=== PATIENT | male | born 1965 | race Caucasian/White ===

== ENCOUNTER 2017-03-04 10:17 | Observation (INO) | payer OTHER ==
[2017-03-04] MEDS ORDERED: NS 500 ML IV ONE (10:22)
--- NOTE | 2017-03-04 10:24 | EDPHY ---
H & P Stated Complaint: chest pain - Personal History Current Tetanus/Diphtheria Vaccine: Yes Current Tetanus Diphtheria and Acellular Pertussis (TDAP): Yes - Medical/Surgical History Hx Asthma: No Hx Chronic Respiratory Disease: No Hx Diabetes: No Hx Cardiac Disease: Yes Hx Renal Disease: No Hx Cirrhosis: No Hx Alcoholism: No Hx HIV/AIDS: No Hx Splenectomy or Spleen Trauma: No Other PMH: medical hyperlipidemia, migraines, GERD. 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 EMS was summoned. Symptoms continue although they are less severe now without intervention beyond aspirin. EMS unable to establish IV access and was therefore not given nitroglycerin en route. REVIEW OF SYSTEMS: A ten point review of systems was performed and is negative with the exception of the items mentioned in the HPI PAST MEDICAL & SURGICAL HISTORY: No history of coronary artery disease SOCIAL HISTORY:Nonsmoker. No listed drug use. No cocaine use. Works as a [employer]. FAMILY HISTORY: Positive family history, notably mother and father with history of AL, 1st AL in their late 40s PHYSICAL EXAM (Prior to examination, patient consented to physical exam, hands were washed and my usual and customary physical exam procedures followed) 1) GENERAL: Well-developed, well-nourished, alert and oriented. Appears to be in no acute distress. 2) HEAD: Normocephalic, atraumatic 3) HEENT: Pupils equal, round, reactive to light bilaterally. Sclera anicteric. 4) NECK: Full range of motion, no meningeal signs. No carotid bruit 5) LUNGS: Clear auscultation bilaterally, no wheezes, no rhonchi, no retractions. 6) HEART: Regular rate and rhythm, no murmur, no heave, no gallop. 7) ABDOMEN: No guarding, no rebound, no focal tenderness, negative McBurney's, negative Leonadro's, negative Rovsing's, negative peritoneal sign, negative Homans no palpable cord 8) MUSCULOSKELETAL: Moving all extremities, no focal areas of tenderness, no obvious trauma. No peripheral edema or discoloration. 9) BACK: , no visual or palpable abnormality. 10) SKIN: No rash, no petechiae. 11) Psychiatric: Patient is oriented X 3, there is no agitation. DIFFERENTIAL DIAGNOSIS: In no particular order, including but not limited to myocardial ischemia, pulmonary embolus, chest wall pain, pleural inflammation and pulmonary infectious causes. (Marley Joseph) Constitutional: Initial Vital Signs Temperature (C) 36.7 C 03/04/17 10:22 Heart Rate 60 03/04/17 10:22 Respiratory Rate 18 03/04/17 10:22 Blood Pressure 137/78 H 03/04/17 10:22 O2 Sat (%) 96 03/04/17 10:22 O2 Delivery Mode Room Air O2 (L/minute) 2 Allergies/Adverse Reactions: ketorolac tromethamine [From Toradol] Allergy (Verified 02/14/14 16:08) Home Medications: Medication Instructions Recorded Rosuvastatin Calcium [Crestor 20mg 20 mg PO HS 02/14/14 (RX)] Atenolol [Tenormin 50 mg (*)] 50 mg PO HS 03/04/17 Omeprazole 40 mg PO HS 03/04/17 Medical Decision Making <Marley Joseph - Last Filed: 03/04/17 11:30> Consult/Admit Bed Type: [place] [id number] <Antony Khan - Last Filed: 03/04/17 11:51> - Diagnostics Imaging Results: Imaging Impressions Chest X-Ray 03/04/17 10:23 Impression: Stable and normal. Imaging Impressions Chest X-Ray 03/04/17 10:23 Impression: Stable and normal. Images reviewed by myself (Marley Joseph) Other Provider: PHYSICIAN DOCUMENTATION: The patient was evaluated and managed by the Physician Metalsmith Helper and myself. I have reviewed the chart and agree with the findings and plan of care as documented. In addition, I examined the patient myself at 1033. History confirmed as left-sided chest pain while driving. Physical findings as follows: Regular rate and rhythm without murmur, no diaphoresis. 12-lead EKG interpreted by me; official reading is in trace master. My interpretation is sinus rhythm, no acute ischemic changes. Significant family history for coronary disease, received aspirin by EMS, plan for troponin and nitroglycerin and chest x-ray, likely admission for further evaluation. I am the secondary supervising physician. (Antony Khan) - Data Points Laboratory Results: Laboratory Results 03/04/17 10:35 03/04/17 10:35 03/04/17 03/04/17 03/04/17 11:07 10:35 10:35 WBC 8.23 10^3/uL 10^3/uL (3.80-9.50) RBC 5.50 10^6/uL 10^6/uL (4.40-6.38) Hgb 17.4 g/dL g/dL (13.7-17.5) Hct 47.2 % % (40.0-51.0) MCV 85.8 fL fL (81.5-99.8) MCH 31.6 pg pg (27.9-34.1) MCHC 36.9 g/dL H g/dL (32.4-36.7) RDW 12.0 % % (11.5-15.2) Plt Count 247 10^3/uL 10^3/uL (150-400) MPV 10.5 fL fL (8.7-11.7) Neut % (Auto) 66.5 % % (39.3-74.2) Lymph % (Auto) 18.5 % % (15.0-45.0) [place] % (Auto) 13.2 % H % (4.5-13.0) Eos % (Auto) 0.9 % % (0.6-7.6) Baso % (Auto) 0.4 % % (0.3-1.7) Nucleat RBC Rel Count 0.0 % % (0.0-0.2) Absolute Neuts (auto) 5.48 10^3/uL 10^3/uL (1.70-6.50) Absolute Lymphs (auto) 1.52 10^3/uL 10^3/uL (1.00-3.00) Absolute Monos (auto) 1.09 10^3/uL H 10^3/uL (0.30-0.80) Absolute Eos (auto) 0.07 10^3/uL 10^3/uL (0.03-0.40) Absolute Basos (auto) 0.03 10^3/uL 10^3/uL (0.02-0.10) Absolute Nucleated RBC 0.00 10^3/uL 10^3/uL (0-0.01) Immature Gran % 0.5 % % (0.0-1.1) Immature Gran # 0.04 10^3/uL 10^3/uL (0.00-0.10) D-Dimer Pending Sodium 143 mEq/L mEq/L (134-144) Potassium 4.9 mEq/L mEq/L (3.5-5.2) Chloride 107 mEq/L mEq/L (97-110) Carbon Dioxide 22 mEq/l mEq/l (22-31) Anion Gap 14 mEq/L mEq/L (8-16) BUN 15 mg/dL mg/dL (7-23) Creatinine 1.2 mg/dL mg/dL (0.7-1.3) Estimated GFR > 60 Glucose 88 mg/dL mg/dL (70-100) Calcium 9.5 mg/dL mg/dL (8.5-10.4) Total Bilirubin 0.8 mg/dL mg/dL (0.1-1.4) Conjugated Bilirubin 0.5 mg/dL mg/dL (0.0-0.5) Unconjugated Bilirubin 0.3 mg/dL mg/dL (0.0-1.1) AST 56 IU/L IU/L (17-59) ALT 44 IU/L IU/L (21-72) Alkaline Phosphatase 81 IU/L IU/L (38-126) Troponin I < 0.012 ng/mL ng/mL (0.000-0.034) Total Protein 7.2 g/dL g/dL (6.3-8.2) Albumin 4.1 g/dL g/dL (3.5-5.0) Lipase 123 IU/L IU/L (23-300) Specimen Hemolysis 143 Medications Given: Nitroglycerin (Nitrostat) 0.4 mg SL Q5M PRN PRN Reason: Chest Pain Last Admin: 03/04/17 11:39 Dose: 0.4 mg Discontinued Medications Sodium Chloride (Ns) 500 mls @ 1,000 mls/hr IV EDNOW ONE PRN Reason: Protocol Stop: 03/04/17 10:51 Last Admin: 03/04/17 11:39 Dose: 500 mls Departure <Marley Joseph - Last Filed: 03/04/17 11:30> <Antony Khan - Last Filed: 03/04/17 11:51> - Departure Disposition: [facility] Inpatient Acute Clinical Impression: Chest pain Qualifiers: Chest pain type: other chest pain Qualified Code(s): R07.89 - Other chest pain Condition: Fair Referrals: Patient,NotPresent [Unknown] - As per Instructions
--- NOTE | 2017-03-04 10:28 | CPEKG ---
Heart Rate: 64 RR Interval: 938 P-R Interval: 148 QRSD Interval: 94 QT Interval: 404 QTC Interval: 417 P [place]: 0 QRS [place]: 11 T Wave [place]: 23 EKG Severity - NORMAL ECG - EKG Impression: SINUS RHYTHM Electronically Signed By: Antony Khan 04-Mar-2017 10:33:25
[2017-03-04] MEDS ORDERED: NITROGLYCERIN 0.4 MG BTL SL PRN (10:37)
[2017-03-04 10:48] LABS: PLATELET COUNT 247 10^3/uL (150-400)
[2017-03-04] MEDS ORDERED: ONDANSETRON 4 MG/2 ML VIAL IVP PRN (12:27)
[2017-03-04] MEDS ORDERED: ACETAMINOPHEN 325 MG TAB PO PRN (12:27)
[2017-03-04] MEDS: ASPIRIN 325 MG TAB PO SCH (12:55)
--- NOTE | 2017-03-04 13:23 | GHP ---
[f rep st] HISTORY AND PHYSICAL DATE OF ADMISSION: 03/04/2017 This patient is a pleasant 52-year-old gentle with a strong family history of coronary disease as wel l as hyperlipidemia, who presents with chest pain. 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 He developed some substernal chest pain that radiated to his left arm. It was nonexertional. It was not associated with diaphoresis or shortness of breath. He has no exertional symptoms, although he has not exercised in a couple of weeks. Regarding risk factors, he has hyperlipidemia and a strong family history with the father, who of cardiovascular complic ations in his 60s, and had his 1st myocardial event and in his 40s. The patient does not have diabet es, does not smoke, he does not use cocaine. He does not have high blood pressure, although he takes atenolol for migraine prophylaxis. He has no heart failure symptoms, such as PND, orthopnea, or low er extremity edema. No fever, chills, cough, sputum. REVIEW OF SYSTEMS: Complete 10-point review of systems conducted; negative, except as noted in the H PI. PAST MEDICAL HISTORY: Hyperlipidemia, migraine, reflux. ALLERGIES: Toradol. MEDICATIONS: Omeprazole, atenolol, and Crestor. SOCIAL HISTORY: He lives in [place]. 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 Nonsmoker. Rare alcohol. FAMILY HISTORY: As in the HPI. PHYSICAL EXAMINATION: VITAL SIGNS: Temp 36.7, blood pressure 137/78, pulse 60, breathing 18 times a minute, 96% on room air. GENERAL: No acute distress. HEENT: Sclerae anicteric. Oropharynx clear . Mucous membranes are moist. NECK: Supple without lymphadenopathy or JVD. LUNGS: Clear to auscu ltation bilaterally. HEART: S1, S2. ABDOMEN: Soft, nontender, nondistended. LOWER EXTREMITIES: Without edema. Calves are nontender. SKIN: Without rash. NEUROLOGIC: Exam is grossly nonfocal. LABS: Chem stat: CBC is normal. D-dimer is less than 0.27. Sodium 143, potassium 4.9, chloride 10 7. Bicarb 22, BUN 15, creatinine 1.2, glucose 895. LFTs normal. Troponin less than 0.012. Lipase normal. TESTS AND IMAGING: EKG, interpreted by dc, shows sinus with normal axis and intervals, and no ST or T-wave changes. Essentially, a normal EKG. Chest x-ray, interpreted by me, shows no acute cardiopulmonary disease. I discussed the case with NAVA Bledsoe of the emergency department. ASSESSMENT/PLAN: 52-year-old gentleman with chest pain. 1. Chest pain. His scenario is somewhat high risk, and he has typical chest pain. He has a nonisch emic EKG. He is currently pain free. Heparin is not indicated. I will write him for an aspirin, cy ovi enzymes, and perform troponin and perform a treadmill stress test in the morning, with nuclear im aging. 2. Elevated creatinine. His creatinine is in the upper limit of normal. I suspect this is his base line. We will follow. 3. Hyperlipidemia. We will check a lipid panel in the morning. 4. Prophylaxis. Pharmacologic prophylaxis indicated if in the hospital longer than 24 hours, which I do not anticipate. DISPOSITION: Observation status. /[id number]/MODL
--- NOTE | 2017-03-04 15:44 | ASMTCMCOM ---
CM Note CM Note Notes: 03/04/2017 Case Management Note Reviewed chart, spoke w/RN. There are no case management d/c needs identified at this time d/t pt age, marital status, activity levels and employment status prior to admission. There are no PT or OT evals ordered at this time. Case Management d/c poc: home independent with follow up as directed. Case Management available if needs change. Date Signed: 03/04/2017 03:44 PM Electronically Signed By:Leilani Aviles RN
[2017-03-04 19:35] VITALS: TEMP 97.4
[2017-03-04] MEDS ORDERED: PANTOPRAZOLE SODIUM 40 MG TAB PO SCH (21:00)
[2017-03-04] MEDS ORDERED: ROSUVASTATIN CALCIUM 20 MG TAB PO SCH (21:00)
[2017-03-04] MEDS ORDERED: NON-FORMULARY NEW DRUG (Omeprazole [Omeprazole] 40 MG) PO SCH (21:00)
[2017-03-04] MEDS ORDERED: HYDROmorphONE/DILAUDID 4 MG TAB PO ONE (22:42)
[2017-03-05 07:36] VITALS: BP 132/88; PULSE 61; RESP 14; O2SAT 95
[2017-03-05] MEDS: ASPIRIN 325 MG TAB PO SCH (07:42)
[2017-03-05] MEDS: ONDANSETRON DISINTEGRATING 4 MG TAB PO PRN ×2 (07:43→12:37)
[2017-03-05] MEDS: HYDROmorphONE/DILAUDID 1 MG/ML INJ IVP PRN ×3 (08:20→12:53)
--- NOTE | 2017-03-05 08:46 | CPEKG ---
Heart Rate: 55 RR Interval: 1091 P-R Interval: 148 QRSD Interval: 96 QT Interval: 428 QTC Interval: 410 P [place]: 6 QRS [place]: 4 T Wave [place]: 25 EKG Severity - NORMAL ECG - EKG Impression: SINUS RHYTHM Electronically Signed By: Nick Javed 05-Mar-2017 14:42:44
[2017-03-05] MEDS ORDERED: PROMETHAZINE HCL 25 MG/ML INJ IVP PRN (09:03)
--- NOTE | 2017-03-05 12:32 | CPR ---
[f rep st] NONINVASIVE CARDIAC PROCEDURE REPORT DATE OF PROCEDURE: 03/05/2017 PROCEDURE: Exercise nuclear stress test. INDICATION: The patient is a 52-year-old male who presented to the hospital with chest pressure, whi ch radiated into his left arm while driving. He was given nitroglycerin, which improved the discomfo rt, but did not completely eliminate it. His chest pain persisted for hours post nitroglycerin. RISK FACTORS FOR CORONARY ARTERY DISEASE: Include hyperlipidemia. Also, his father had a fatal [place] a t the age of 65. DESCRIPTION OF THE PROCEDURE: Consent was obtained, and the patient was placed on continuous telemet ry. His resting EKG revealed normal sinus rhythm with heart rate of 68. He has diffuse T-wave shannan ening without diagnostic changes for ischemia. The patient walked on the treadmill for 9 minutes wit hout any associated symptoms. He remained in normal sinus rhythm with minimal upsloping, ST depressi on diffusely. His heart rate peaked at 152 beats per minute. His blood pressure at rest was 118/88, and peaked at 178/88. It returned to baseline 5 minutes into recovery. His heart rate returned to baseline 5 minutes into recovery as well. PLAN: Normal exercise treadmill test. Await nuclear images. /[id number]/MODL
[2017-03-05] MEDS ORDERED: ACETAMINOPHEN/ASA/CAFFEINE 1 EACH TAB PO PRN (13:50)
--- NOTE | 2017-03-05 16:09 | ASDISCHSUM ---
Discharge Information Plan Status:Home with No Needs Medically Cleared to Leave:03/04/2017 Discharge Date:03/05/2017 03:59 PM CM D/C Disposition:Home, Routine, Self-Care ADT D/C Disposition:Home, Routine, Self-Care Projected Discharge Date:03/05/2017 03:59 PM Transportation at D/C:Family Discharge Delay Reason: Follow-Up Date:03/05/2017 03:59 PM Discharge Slot: Final Diagnosis: Placement Information Patient Contact Information Contact Name:CLARA Relationship: Address:[address] [place] Phone: State/Zip Code:[place] [address] Email: Financial Information Financial Class:[facility] Primary Plan Desc:[facility] [place] [facility] Primary Plan Number:[id number] Secondary Plan Desc: Secondary Plan Number: Assessment Information [facility] CM Progress Note CM Note CM Note Notes: 03/04/2017 Case Management Note Reviewed chart, spoke w/RN. There are no case management d/c needs identified at this time d/t pt age, marital status, activity levels and employment status prior to admission. There are no PT or OT evals ordered at this time. Case Management d/c poc: home independent with follow up as directed. Case Management available if needs change. Date Signed: 03/04/2017 03:44 PM Electronically Signed By:Leilani Aviles RN LACE LACDaya Length of stay for Answers: 1 day current admission Acuity / Level of Care Answers: Was the patient admitted to hospital via the emergency department? Yes: Comorbidities - select Answers: Cerebrovascular disease all that apply Emergency dept visits in Answers: 0 last 6 months Score: 5 Date Signed: 03/05/2017 04:09 PM Electronically Signed By:Leilani Aviles RN Intervention Information
--- NOTE | 2017-03-06 05:36 | GDS ---
[f rep st] DISCHARGE SUMMARY DISCHARGE DIAGNOSES: 1. Chest pain with low risk nuclear medicine perfusion scan. 2. Hyperlipidemia. 3. Obesity. HISTORY: The patient is a 52-year-old male, who presented with chest pain that radiated to his left arm. He does have a strong family history of coronary artery disease. Serial troponins and EKGs wer e unremarkable. He underwent stress testing today. His exercise treadmill portion was completely no rmal without EKG changes. His nuclear medicine images showed some fixed thinning and diminished perf usion of the distal anterior septal junction where there is some very mild hypokinesis on the gated s tudy. There was no reversibility. I reviewed this nuclear medicine scan with Cardiology, and they f elt it did represent an overall low risk situation. They recommended discharge home and follow up [facility] Cardiology as an outpatient for further discussion of management. I would think if he continues t o have chest pain, cardiac catheterization could be performed. DISCHARGE MEDICATIONS: Please see computer record for full detailed list. New medications: Aspirin 325 mg p.o. daily additional. ADDITIONAL DISCHARGE INSTRUCTIONS: Outpatient cardiology consultation to further discuss stress test ing results. The patient was seen and examined by me on the day of discharge. /[id number]/MODL
== END 2017-03-05 15:59 | disposition home or self-care (01) ==
LOC: EDUNIT# → F2W 13:38
PROVIDERS: ADMIT Internal Medicine; ATTEND Internal Medicine
DX: R07.9 Chest pain, unspecified (principal); R79.89 Other specified abnormal findings of blood chemistry; E78.5 Hyperlipidemia, unspecified; E66.9 Obesity, unspecified; K21.9 Gastro-esophageal reflux disease without esophagitis; Z82.49 Family history of ischemic heart disease and other diseases of the circulatory system
CPT/HCPCS: 71046; 78452; 93005; 93017; 99285; A9500; G0378; J1170; J2550